=== PATIENT | male | born 1985 | race Caucasian/White ===

== ENCOUNTER → 2017-10-24 | Outpatient (CLI) | payer OTHER ==
[~2017-10-24] MED LIST: ISOVUE-370 76% 100ML VIAL (Q9967) As Ordered
== END ==
LOC: M RAD 09:21
DX: M54.2 Cervicalgia (principal); I65.23 Occlusion and stenosis of bilateral carotid arteries

== ENCOUNTER 2019-02-15 07:20 | Emergency (ER) | payer OTHER ==
[~2019-02-15] VITALS: Ht 177.8 cm; Wt 88.6 kg
[2019-02-15] MEDS ORDERED: METOCLOPRAMIDE INJ 10MG/2ML VIAL (J2765) IV ONE (07:45)
[2019-02-15] MEDS ORDERED: diphenhydrAMINE INJ 50MG/ML VIAL (J1200) IV ONE (07:45)
[2019-02-15] MEDS ORDERED: KETOROLAC 30 MG/ML VIAL (J1885) IV ONE (07:45)
[2019-02-15 08:10] LABS: HEMATOCRIT 52.1 % (42.0-52.0); HEMOGLOBIN 16.7 g/dl (13.5-17.5); MEAN CORPUSCULAR HEMOGLOBIN 27.7 pg (27.0-33.0); MEAN CORPUSCULAR HGB CONC 32.1 g/dl (32.0-36.5); MEAN CORPUSCULAR VOLUME 86.5 fl (80.0-96.0); PLATELET COUNT, AUTOMATED 200 10^3/uL (150-450); RED BLOOD COUNT 6.02 10^6/uL (4.30-6.10)
[2019-02-15] MEDS ORDERED: ISOVUE-370 76% 100ML VIAL (Q9967) As Ordered ONE (08:15)
--- NOTE | 2019-02-15 08:43 | REP ---
CT brain without and with IV contrast: History: Worst headache. CT contrast dose: 75 ml of intravenous Isovue 370. CT findings: Preliminary digital sales demonstrator radiograph is unremarkable. Bone window settings demonstrate an intact bony calvarium. There is an air-fluid level in the apex of the right maxillary sinus and there is mucosal thickening in several of the right ethmoid air cells consistent with paranasal sinus inflammatory changes. No intraorbital abnormality is seen. On soft-tissue window settings, lateral, third, and fourth ventricles are normal in size and position. There is no evidence of intracranial hemorrhage. No extra-axial fluid collection is seen. No mass, infarct or midline shift is seen. Milian white differentiation pattern is intact. Contrast enhanced study demonstrates enhancement in normal vasculature. No abnormal intracranial contrast enhancement is appreciated. Impression: Paranasal sinus disease involving the right maxillary and right ethmoid sinuses. Otherwise normal CT study of the brain. No abnormal contrast enhancement. Electronically Signed by Tab Ball MD 02/15/2019 08:35 A
[2019-02-15] MEDS ORDERED: DOXY-350 PO (09:12)
[2019-02-15] MEDS ORDERED: MUCI600T31 PO (09:12)
[2019-02-15] MEDS ORDERED: FLUTISP (09:12)
[2019-02-15] MEDS ORDERED: dexameTHASONE 4 MG/ML 1ML VIAL (J1100) IV ONE (09:15)
[2019-02-15 09:19] VITALS: BP 148/92
== END 2019-02-15 09:27 | disposition home or self-care (01) ==
LOC: M ED 07:20
DX: G43.909 Migraine, unspecified, not intractable, without status migrainosus (principal); J01.00 Acute maxillary sinusitis, unspecified; J01.20 Acute ethmoidal sinusitis, unspecified; Z82.0 Family history of epilepsy and other diseases of the nervous system; Z88.1 Allergy status to other antibiotic agents
CPT/HCPCS: 36415; 70470; 80047; 85027; 96374; 96375; 99284; J1200; J1885; J2765; Q9967